=== PATIENT | female | born 2005 | race American Indian/Alaskan Native ===

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

== ENCOUNTER 2025-02-25 10:03 | Inpatient (IN) | payer MEDICAID ==
[2025-02-25 10:47] LABS: BASOPHILS PERCENT AUTO 0.5 % (0.0-1.0); EOSINOPHILS PERCENT AUTO 0.0 % (1.0-3.0); LYMPHOCYTES PERCENT AUTO 15.1 % (20.5-50.1); MONOCYTES PERCENT AUTO 2.9 % (2-8); NEUTROPHILS PERCENT AUTO 81.5 % (42.2-75.2); PLATELET COUNT,PLT 373 10^3/uL (150-450); RED BLOOD CELL COUNT 5.65 10^6/uL (4.2-5.4); WHITE BLOOD CELL COUNT,WBC 10.1 10^3/uL (5.0-10.0)
[2025-02-25 11:11] LABS: A/G RATIO 1.0; ALANINE AMINOTRANSFERASE,ALT 20.0 U/L (14-59); ASPARTATE AMNIOTRANSFERASE,AST 12.0 U/L (15-37); BILIRUBIN TOTAL 0.4 mg/dL (0.2-1.0); BLOOD UREA NITROGEN,BUN 9.0 mg/dL (7-18); CARBON DIOXIDE,CO2 12.0 mmol/L (21-32); CHLORIDE,CL 96.0 mmol/L (98-107); CREATININE 1.04 mg/dL (0.55-1.02); EST CRCL DRUG DOSING (CG) 84.61 mL/min; ETHANOL BLOOD MEDICAL 112.0 mg/dL (0); POTASSIUM,K 3.8 mmol/L (3.5-5.1); PROTEIN TOTAL,TP 9.8 g/dL (6.4-8.2); SODIUM,NA 135.0 mmol/L (136-145)
[2025-02-25 11:35] LABS: ESTIMATED GFR 79.0 mL/min (>=60)
[2025-02-25] MEDS: Ondansetron 4 MG/2 ML SDV IVPUSH ONE (11:49)
[2025-02-25] MEDS: NS with KCl 40mEq 1,000 ML IV SCH ×2 (11:51→14:56)
[2025-02-25 11:57] LABS: GLUCOSE RANDOM 511.0 mg/dL (70-99)
[2025-02-25 11:59] LABS: O2 DELIVERY DEVICE ROOM AIR; O2 SATURATION VENOUS 94.8 % (60-80); PCO2 VENOUS 20 mmHg (41-51); PH,VENOUS 7.20 (7.31-7.41); PO2 VENOUS 81 mmHg (35-42)
[2025-02-25 12:00] LABS: BASE EXCESS VENOUS -19.3 mmol/l ((-2)-(+3)); BICARBONATE,VENOUS 8 mmol/l (19-25)
[2025-02-25 12:21] LABS: LACTIC ACID 4.3 mmol/L (0.4-2.0)
[2025-02-25] MEDS ORDERED: 50% Dextrose in Water 50 ML Syringe IVPUSH PRN ×2 (12:24→13:19)
[2025-02-25] MEDS: Insulin Regular, Human 100 Units/ML 10 ML Vial IV ONE (12:29)
[2025-02-25] MEDS: Potassium Chloride 10% 20 MEQ/15 ML Soln 15 ML UD Cup PO SCH (12:32)
[2025-02-25] MEDS: Potassium Chloride 10% 20 MEQ/15 ML Soln 15 ML UD Cup ONE (12:46)
[2025-02-25 13:36] LABS: BLOOD UREA NITROGEN,BUN 7.0 mg/dL (7-18); CARBON DIOXIDE,CO2 13.0 mmol/L (21-32); CHLORIDE,CL 109.0 mmol/L (98-107); CREATININE 0.89 mg/dL (0.55-1.02); EST CRCL DRUG DOSING (CG) 98.87 mL/min; GLUCOSE RANDOM 291.0 mg/dL (70-99); POTASSIUM,K 4.7 mmol/L (3.5-5.1); SODIUM,NA 143.0 mmol/L (136-145)
[2025-02-25 13:37] LABS: ESTIMATED GFR 96.0 mL/min (>=60)
[2025-02-25] MEDS ORDERED: Sodium Chloride 0.9% 10 ML Syringe FLUSH PRN (13:47)
[2025-02-25] MEDS ORDERED: Sennosides/Docusate Sodium 50-8.6 MG Tab PO PRN (13:47)
[2025-02-25 14:33] LABS: APPEARANCE,URINE CLEAR (CLEAR); GLUCOSE,URINE 500 (NEGATIVE); OCCULT BLOOD,URINE SMALL (NEGATIVE)
[2025-02-25 14:52] LABS: EPITHELIAL CELLS,URINE FEW /HPF (NOT SEEN); FINE GRANULAR CASTS,URINE FEW /LPF (NOT SEEN)
[2025-02-25] MEDS ORDERED: Flumazenil 0.1 MG/ML 5 ML MDV IVPUSH PRN (16:17)
[2025-02-25 16:55] LABS: BLOOD UREA NITROGEN,BUN 5.0 mg/dL (7-18); CARBON DIOXIDE,CO2 14.0 mmol/L (21-32); CHLORIDE,CL 109.0 mmol/L (98-107); CREATININE 0.64 mg/dL (0.55-1.02); EST CRCL DRUG DOSING (CG) 116.96 mL/min; GLUCOSE RANDOM 202.0 mg/dL (70-99); POTASSIUM,K 5.5 mmol/L (3.5-5.1); SODIUM,NA 141.0 mmol/L (136-145)
[2025-02-25 16:57] LABS: ESTIMATED GFR 130.0 mL/min (>=60)
[2025-02-25 17:34] LABS: CHOLESTEROL HDL 60 mg/dL (40-59); CHOLESTEROL LDL CALCULATED 116 mg/dL (0-100); CHOLESTEROL TOTAL 210 mg/dL (0-199)
[2025-02-25] MEDS ORDERED: Ondansetron 4 MG/2 ML SDV IVPUSH PRN (18:00)
[2025-02-25 20:37] LABS: BLOOD UREA NITROGEN,BUN 4.0 mg/dL (7-18); CARBON DIOXIDE,CO2 17.0 mmol/L (21-32); CHLORIDE,CL 104.0 mmol/L (98-107); CREATININE 0.65 mg/dL (0.55-1.02); EST CRCL DRUG DOSING (CG) 115.16 mL/min; GLUCOSE RANDOM 209.0 mg/dL (70-99); POTASSIUM,K 4.2 mmol/L (3.5-5.1); SODIUM,NA 136.0 mmol/L (136-145)
[2025-02-25 20:47] LABS: ESTIMATED GFR 130.0 mL/min (>=60)
[2025-02-25] MEDS: Insulin Glarg,Human.Rec.Analog 100 Unit/ML 10 ML Vial SUBCUT SCH (21:19)
[2025-02-25] MEDS: Sodium Chloride 0.9% 10 ML Syringe FLUSH SCH (21:20)
[2025-02-25] MEDS: Potassium Chloride 10 MEQ Tab.ER PO ONE (21:27)
[2025-02-26 01:16] LABS: BLOOD UREA NITROGEN,BUN 4.0 mg/dL (7-18); CARBON DIOXIDE,CO2 15.0 mmol/L (21-32); CHLORIDE,CL 102.0 mmol/L (98-107); CREATININE 0.68 mg/dL (0.55-1.02); EST CRCL DRUG DOSING (CG) 110.08 mL/min; GLUCOSE RANDOM 358.0 mg/dL (70-99); POTASSIUM,K 4.2 mmol/L (3.5-5.1); SODIUM,NA 133.0 mmol/L (136-145)
[2025-02-26 01:17] LABS: ESTIMATED GFR 129.0 mL/min (>=60)
[2025-02-26 06:42] LABS: O2 DELIVERY DEVICE ROOM AIR
[2025-02-26 06:46] LABS: BASE EXCESS VENOUS -10.4 mmol/l ((-2)-(+3)); BICARBONATE,VENOUS 16 mmol/l (19-25); O2 SATURATION VENOUS 96.2 % (60-80); PCO2 VENOUS 36 mmHg (41-51); PH,VENOUS 7.26 (7.31-7.41); PO2 VENOUS 80 mmHg (35-42)
[2025-02-26 07:14] LABS: ALANINE AMINOTRANSFERASE,ALT 14.0 U/L (14-59); ASPARTATE AMNIOTRANSFERASE,AST 9.0 U/L (15-37); BILIRUBIN TOTAL 0.8 mg/dL (0.2-1.0); BLOOD UREA NITROGEN,BUN 3.0 mg/dL (7-18); CARBON DIOXIDE,CO2 19.0 mmol/L (21-32); CHLORIDE,CL 110.0 mmol/L (98-107); CREATININE 0.51 mg/dL (0.55-1.02); EST CRCL DRUG DOSING (CG) 146.77 mL/min; GLUCOSE RANDOM 116.0 mg/dL (70-99); PHOSPHORUS 1.7 mg/dL (2.6-4.7); POTASSIUM,K 3.0 mmol/L (3.5-5.1); PROTEIN TOTAL,TP 6.2 g/dL (6.4-8.2); SODIUM,NA 139.0 mmol/L (136-145)
[2025-02-26 07:15] LABS: BASOPHILS PERCENT AUTO 0.3 % (0.0-1.0); EOSINOPHILS PERCENT AUTO 2.2 % (1.0-3.0); LYMPHOCYTES PERCENT AUTO 28.5 % (20.5-50.1); MONOCYTES PERCENT AUTO 7.7 % (2-8); NEUTROPHILS PERCENT AUTO 61.3 % (42.2-75.2); PLATELET COUNT,PLT 232 10^3/uL (150-450); RED BLOOD CELL COUNT 3.83 10^6/uL (4.2-5.4); WHITE BLOOD CELL COUNT,WBC 7.3 10^3/uL (5.0-10.0)
[2025-02-26 07:32] LABS: A/G RATIO 0.94; ESTIMATED GFR 138.0 mL/min (>=60)
[2025-02-26] MEDS: Magnesium Sulfate 2 GM/50 mL 2 GM in Premix Bag 1 BAG IV ONE (08:18)
[2025-02-26] MEDS: Potassium Chloride 10 MEQ Tab.ER PO SCH (08:21)
[2025-02-26] MEDS: Phosphorus #1 250 MG Tab PO SCH (08:22)
[2025-02-26 08:45] LABS: IRON,FE 86.0 ug/dL (50-170); PERCENT FE SATURATION 37.4 % (20.0-50.0)
[2025-02-26 08:59] LABS: FOLIC ACID 12.4 ng/mL (8.6-58.9)
[2025-02-26 14:46] LABS: O2 DELIVERY DEVICE ROOM AIR
[2025-02-26 14:47] LABS: BASE EXCESS VENOUS -8.5 mmol/l ((-2)-(+3)); BICARBONATE,VENOUS 17 mmol/l (19-25); O2 SATURATION VENOUS 98.9 % (60-80); PCO2 VENOUS 35 mmHg (41-51); PH,VENOUS 7.30 (7.31-7.41); PO2 VENOUS 117 mmHg (35-42)
[2025-02-26] MEDS: Potassium Chloride 10 MEQ Tab.ER PO ONE (17:45)
[2025-02-27 07:03] LABS: BASOPHILS PERCENT AUTO 0.4 % (0.0-1.0); EOSINOPHILS PERCENT AUTO 3.4 % (1.0-3.0); LYMPHOCYTES PERCENT AUTO 47.2 % (20.5-50.1); MONOCYTES PERCENT AUTO 6.5 % (2-8); NEUTROPHILS PERCENT AUTO 42.5 % (42.2-75.2); PLATELET COUNT,PLT 195 10^3/uL (150-450); RED BLOOD CELL COUNT 3.67 10^6/uL (4.2-5.4); WHITE BLOOD CELL COUNT,WBC 4.6 10^3/uL (5.0-10.0)
[2025-02-27 07:30] LABS: ALANINE AMINOTRANSFERASE,ALT 17.0 U/L (14-59); ASPARTATE AMNIOTRANSFERASE,AST 12.0 U/L (15-37); BILIRUBIN TOTAL 0.4 mg/dL (0.2-1.0); BLOOD UREA NITROGEN,BUN 2.0 mg/dL (7-18); CARBON DIOXIDE,CO2 24.0 mmol/L (21-32); CHLORIDE,CL 106.0 mmol/L (98-107); CREATININE 0.4 mg/dL (0.55-1.02); EST CRCL DRUG DOSING (CG) 187.13 mL/min; GLUCOSE RANDOM 193.0 mg/dL (70-99); POTASSIUM,K 3.0 mmol/L (3.5-5.1); PROTEIN TOTAL,TP 5.9 g/dL (6.4-8.2); SODIUM,NA 143.0 mmol/L (136-145)
[2025-02-27 07:34] LABS: A/G RATIO 0.9; ESTIMATED GFR 146.0 mL/min (>=60)
[2025-02-27] MEDS ORDERED: 50% Dextrose in Water 50 ML Syringe IVPUSH PRN (18:19)
[2025-02-27] MEDS: Potassium Chloride 20 MEQ in Premix Bag 1 BAG IV ONE (19:50)
[2025-02-27] MEDS: Magnesium Sulfate 2 GM/50 mL 2 GM in Premix Bag 1 BAG IV ONE (19:54)
[2025-02-27] MEDS: Insulin Glarg,Human.Rec.Analog 100 Unit/ML 10 ML Vial SUBCUT SCH (21:50)
[2025-02-28 06:33] LABS: BASOPHILS PERCENT AUTO 0.4 % (0.0-1.0); EOSINOPHILS PERCENT AUTO 3.1 % (1.0-3.0); LYMPHOCYTES PERCENT AUTO 49.0 % (20.5-50.1); MONOCYTES PERCENT AUTO 7.7 % (2-8); NEUTROPHILS PERCENT AUTO 39.8 % (42.2-75.2); PLATELET COUNT,PLT 195 10^3/uL (150-450); RED BLOOD CELL COUNT 3.93 10^6/uL (4.2-5.4); WHITE BLOOD CELL COUNT,WBC 4.8 10^3/uL (5.0-10.0)
[2025-02-28 06:56] LABS: BLOOD UREA NITROGEN,BUN 4.0 mg/dL (7-18); CARBON DIOXIDE,CO2 30.0 mmol/L (21-32); CHLORIDE,CL 105.0 mmol/L (98-107); CREATININE 0.52 mg/dL (0.55-1.02); EST CRCL DRUG DOSING (CG) 143.95 mL/min; GLUCOSE RANDOM 175.0 mg/dL (70-99); PHOSPHORUS 4.3 mg/dL (2.6-4.7); POTASSIUM,K 3.0 mmol/L (3.5-5.1); SODIUM,NA 142.0 mmol/L (136-145)
[2025-02-28 07:00] LABS: ESTIMATED GFR 137.0 mL/min (>=60)
[2025-02-28] MEDS: Potassium Chloride 10 MEQ Tab.ER PO SCH (08:35)
[2025-02-28] MEDS: Potassium Chloride 20 MEQ in Premix Bag 1 BAG IV ONE (09:10)
== END 2025-02-28 13:45 | disposition home or self-care (01) | DRG 639 ==
LOC: DL.ED 10:03 → DL.MS 12:48
PROVIDERS: ADMIT Student in an Organized Health Care Education/Training Program; ATTEND Internal Medicine
DX: E11.10 Type 2 diabetes mellitus with ketoacidosis without coma (principal); F17.200 Nicotine dependence, unspecified, uncomplicated; E86.0 Dehydration; D75.1 Secondary polycythemia; E78.5 Hyperlipidemia, unspecified; D64.9 Anemia, unspecified; E87.6 Hypokalemia; E83.42 Hypomagnesemia; E83.39 Other disorders of phosphorus metabolism; E88.09 Other disorders of plasma-protein metabolism, not elsewhere classified
CPT/HCPCS: 36415; 80053; 80307; 82803; 82947 ×2; 83036; 83605; 84100; 85025; 93005; 93010; 96365; 96375; 99285; 99291; A9270 ×2; J2405; J3480; J7030; 71045; 80048; 80061; 81001; 81025; 82009; 82607; 82728; 82746; 83540; 83550; 83735; 84132; 87040; 99223; 99233; 99239; J1815-GY; J3475